=== PATIENT | female | born 1970 | race Caucasian/White ===

== ENCOUNTER 2021-01-05 19:49 | Inpatient (IN) | payer MEDICARE, MEDICAID, SELFPAY ==
--- NOTE | 2021-01-05 19:20 | ECG_ITS ---
APPROVED REPORT Exam: Resting ECG HR:77 bpm ECG Measurements Heart Rate 77 AXES IN 136 P 71 QRSd 70 QRS 51 QT 368 T 59 QTc 416 Conclusion Normal sinus rhythm Normal ECG Electronically signed by : Jc Marshall, 01/06/2021 18:05:13
[2021-01-05 19:48] VITALS: BP 117/77; PULSE 68; RESP 17; TEMP 37.8; O2SAT 98; BMI 22.1
--- NOTE | 2021-01-05 19:58 | CT_ITS ---
PROCEDURE: CT CERVICAL SPINE WO CON CLINICAL INDICATION: fall Pain COMPARISON: CT CT CERVICAL SPINE WO CON from 09/26/2019 TECHNIQUE: Axial images obtained with sagittal and coronal reformats. All CT scans at the facility use one or more dose reduction, viz: automated exposure control, ma/kV adjustment per patient size (including targeted exams where dose is matched to indication, i.e. head), or iterative reconstruction technique. Axial spiral CT scanning performed of the cervical spine beginning at the base of the skull and continuing to the upper T-spine. 3-D multiplanar reconstruction with 3-D manipulation of volumetric data set in image rendering was completed by the radiologist and/or technologist with the supervision of the radiologist on independent workstation. FINDINGS: Normal alignment. No acute fracture or dislocation. C2-C3: Unremarkable. C3-C4: Mild foraminal narrowing from facet hypertrophic change. C4-C5: Mild bilateral foraminal narrowing from facet hypertrophic change. C5-C6: Degenerative disc disease with mild bilateral facet and uncovertebral hypertrophy with foraminal narrowing. Prominent anterior osteophyte. Canal stenosis is present at this level at 8 mm secondary to endplate osteophytes/broad-based disc osteophyte complex.. Right paracentral vertebral body hypertrophic change at C6 is causing canal stenosis and right lateral recess narrowing. C7-T1: Right paracentral disc osteophyte complex with canal stenosis and right lateral recess narrowing. Lung apices are clear. Otto mm left-sided thyroid nodule. There are few scattered small cervical lymph nodes. C6-C7: IMPRESSION: 1. No acute fracture. 2. Multilevel cervical spondylosis as described above. 3. 11 mm thyroid nodule on the left Dictated by: Bucky Greene MD 01/06/2021 07:22 Bucky Greene MD in [facility] 01/06/2021 07:22
--- NOTE | 2021-01-05 19:58 | XR_ITS ---
PROCEDURE: XR CHEST PORTABLE CLINICAL HISTORY: fall Pain COMPARISON: CR CXR2 XR chest AP from 06/20/2018 CR XR CHEST AP from 09/26/2019 FINDINGS: The cardiomediastinal silhouette and pulmonary vascularity are within normal limits. The lungs are clear without infiltrates, suspicious nodules, or pleural effusions. No acute bony abnormalities. IMPRESSION: No acute findings. Dictated by: Bucky Greene MD 01/06/2021 06:16 Bucky Greene MD in [facility] 01/06/2021 06:16
--- NOTE | 2021-01-05 19:58 | CT_ITS ---
PROCEDURE: CT HEAD/BRAIN WO CON CLINICAL INDICATION: fall Pain COMPARISON: CT CT HEAD/BRAIN WO CON from 09/26/2019 TECHNIQUE: Axial images obtained. All CT scans at the facility use one or more dose reduction, viz: automated exposure control, ma/kV adjustment per patient size (including targeted exams where dose is matched to indication, i.e. head), or iterative reconstruction technique. FINDINGS: No midline shift, mass effect, intracranial hemorrhage, hydrocephalus, or extra-axial fluid collection is evident. There is generalized atrophy with hypoattenuation of the periventricular white matter consistent with microangiopathic changes.. There are numerous subcutaneous nodules along the scalp partially calcified. Please correlate with physical exam. The largest is in the right frontal area at 11 mm. The calvarium has an unremarkable appearance. No mastoid effusion. No sinus air-fluid level. IMPRESSION: 1. No acute intracranial findings. 2. Numerous partially calcified scalp nodules etiology indeterminate. Please correlate with physical exam. Dictated by: Bucky Greene MD 01/06/2021 07:17 Bucky Greene MD in [facility] 01/06/2021 07:17
--- NOTE | 2021-01-05 19:58 | XR_ITS ---
PROCEDURE: XR PELVIS 1-2V CLINICAL INDICATION: fall COMPARISON: CR PEL1V XR pelvis 1-2V from 06/20/2018 CR XR PELVIS 1-2V from 09/26/2019 TECHNIQUE: XR Pelvis AP View FINDINGS: No fracture or dislocation is evident. 14 mm sclerotic focus is present involving the proximal left femur which is stable and may be due to a bone island. Linear metallic density noted over the L4 region etiology indeterminate possibly due to body piercing artifact or foreign body IMPRESSION: No acute findings. Dictated by: Bucky Greene MD 01/06/2021 06:13 Bucky Greene MD in [facility] 01/06/2021 06:13
[2021-01-05 20:19] LABS: Basophils # 0.1 K/mm3 (0-0.2); Basophils % 0.3 % (0.1-2.0); Eosinophils % 0.1 % (0.1-12.0); Hematocrit 45.2 % (37.0-47.0); Hemoglobin 15.5 g/dL (12.2-16.2); Lymphocytes # 1.1 K/mm3 (0.7-4.5); Lymphocytes % 5.6 % (10-50); Mean Corpuscular HGB Conc 34.4 g/dL (31.8-35.4); Mean Corpuscular Hemoglobin 31.6 pg (27.0-31.2); Mean Corpuscular Volume 91.9 fl (81-99); Mean Platelet Volume 9.3 fl (7.4-10.4); Monocytes # 0.6 K/mm3 (0.1-1.0); Monocytes % 3.1 % (1.7-9.3); Neutrophils # 17.6 K/mm3 (1.8-7.8); Neutrophils % 90.8 % (37.0-80.0); Platelet Count 225 K/mm3 (142-424); Red Blood Count 4.92 M/mm3 (4.20-5.40); Red Cell Distribution Width 13.2 % (11.5-17.5); White Blood Count 19.3 K/mm3 (4.8-10.8)
[2021-01-05 20:26] LABS: HCG Qualitative, Serum Negative (Negative)
[2021-01-05 20:27] LABS: Alanine Aminotransferase 22 U/L (12-78); Albumin Level 5.4 g/dl (3.5-5.0); Alkaline Phosphatase 92 U/L (38-126); Anion Gap 18.9 mEq/L (5-15); Aspartate Amino Transferase 66 U/L (14-36); Bilirubin,Direct 0.2 mg/dl (0.0-0.4); Bilirubin,Indirect 0.7 mg/dL (0.0-0.9); Bilirubin,Total 0.9 mg/dl (0.2-1.3); Bilirubin,Unconjugated 0.7 mg/dL (0.0-1.1); Blood Urea Nitrogen 42 mg/dl (7-17); Calcium 10.6 mg/dl (8.4-10.2); Carbon Dioxide 25 mmol/L (22.0-30.0); Chloride 114 mmol/L (98-107); Creatine Kinase 1102 U/L (30-135); Creatinine Clearance Estimated 56 mL/min (50-200); Estimated Glomerular Filt Rate 53 ml/min (>60); GFR (African American) 64 ML/MIN (>60); Glucose 132 mg/dl (74-100); MANUAL DIFFERENTIAL MANUAL DIFFERENTIAL (MANUAL DIFF); Potassium 3.9 mmoL/L (3.5-5.1); Total Protein,Serum 9.2 g/dl (6.3-8.2)
[2021-01-05 20:29] LABS: Acetaminophen < 10 ug/ml (10-30); Salicylate < 1.0 mg/dL (2.0-20.0)
--- NOTE | 2021-01-05 20:29 | PC.NURSE ---
Dr. Ortiz notified of critical sodium
[2021-01-05 20:31] LABS: Sodium 154 mmol/L (136-145)
[2021-01-05 20:32] LABS: C-Reactive Protein 3.6 mg/L (0-4)
[2021-01-05 20:43] LABS: Troponin I < 0.01 ng/ml (0.00-0.034)
[2021-01-05 20:47] LABS: Procalcitonin 0.069 ng/mL (0.0-2.0)
[2021-01-05 21:03] LABS: Erythrocyte Sedimentation Rate 17 mm/hr (0-20)
[2021-01-05 21:07] VITALS: BP 124/77; PULSE 61; RESP 15; O2SAT 96
[2021-01-05 21:13] LABS: Adenovirus,PCR Not Detected (NotDetected); Bordetella Pertussis Not Detected (NotDetected); Chlamydophila Pneumoniae, PCR Not Detected (NotDetected); Coronavirus 19, PCR Not Detected (NotDetected); Coronavirus 229E Not Detected (NotDetected); Coronavirus NL63 Not Detected (NotDetected); Coronavirus OC43 Not Detected (NotDetected); Coronovirus HKU1,PCR Not Detected (NotDetected); Human Metapneumovirus Not Detected (NotDetected); Influenza A, PCR Not Detected (NotDetected); Influenza AH1, 2009 Not Detected (NotDetected); Influenza AH1, PCR Not Detected (NotDetected); Influenza AH3,PCR Not Detected (NotDetected); Influenza B, PCR Not Detected (NotDetected); Mycoplasma Pneumoniae, PCR Not Detected (NotDetected); Parainfluenza 1, PCR Not Detected (NotDetected); Parainfluenza 2, PCR Not Detected (NotDetected); Parainfluenza 3, PCR Not Detected (NotDetected); Parainfluenza 4, PCR Not Detected (NotDetected); Respiratory Syncytial Virus Not Detected (NotDetected); Rhinovirus/Enterovirus Not Detected (NotDetected)
[2021-01-05 21:21] LABS: Lymphocytes % 8 % (10-50); Monocytes % 4 % (2-9); Neutrophils % 88 % (42-76); Platelet Estimate Normal; RBC Morphology Normal; Total Cells Counted 100
[2021-01-05 21:30] VITALS: BP 113/71; PULSE 60; RESP 16; O2SAT 100
--- NOTE | 2021-01-05 21:30 | HMH.EDFALL ---
ED Disposition Clinical Impression: PAULINA (acute kidney injury), Hypernatremia, Vivien disease Rhabdomyolysis Qualifiers: Rhabdomyolysis type: non-traumatic Qualified Code(s): M62.82 - Rhabdomyolysis UTI (urinary tract infection) Qualifiers: Urinary tract infection type: site unspecified Hematuria presence: without hematuria Qualified Code(s): N39.0 - Urinary tract infection, site not specified Disposition: Admitted As Inpatient Condition on Discharge: Serious Referrals: Provider,Referral, [Referring] - - Critical Care Critical Care Time: No Attestation: On 01/05/21, the high probability of a clinically significant, sudden or life threatening deterioration of the following system(s) required my full and direct attention, intervention and personal management. The time I documented below is in addition to time spent performing reported procedures but includes the following listed in this critical care notation. Medical Decision Making - Medical Records Medical records reviewed: Yes: I reviewed the patient's medical records. - [place] Inquiry Pt receiving controlled substance: No Vital Signs: 01/05/21 19:48 Temperature 100.1 F H Temperature Source Rectal Pulse Rate [Right] 68 Respiratory Rate 17 Blood Pressure [Right Arm] 117/77 Blood Pressure Mean [Right Arm] 90 Blood Pressure Source [Right Arm] Automatic Cuff 02 Sat by Pulse Oximetry 98 Oxygen Delivery Method Room Air - Lab Data Lab results reviewed: Yes: I reviewed the patient's lab results. Lab Results 01/05/21 19:54: WBC 19.3 H, RBC 4.92, Hgb 15.5, Hct 45.2, MCV 91.9, MCH 31.6 H, MCHC 34.4, RDW 13.2, Plt Count 225, MPV 9.3, Neut % (Auto) 90.8 H, Lymph % (Auto) 5.6 L, [place] % (Auto) 3.1, Eos % (Auto) 0.1, Baso % (Auto) 0.3, Neut # (Auto) 17.6 H, Lymph # (Auto) 1.1, [place] # (Auto) 0.6, Eos # (Auto) 0.0, Baso # (Auto) 0.1, Total Counted 100, Neutrophils % (Manual) 88 H, Lymphocytes % (Manual) 8 L, Monocytes % (Manual) 4, Platelet Estimate Normal, RBC Morphology Normal, ESR 17 01/05/21 19:54: Sodium 154 H*, Potassium 3.9, Chloride 114 H, Carbon Dioxide 25, Anion Gap 18.9 H, BUN 42 H, Creatinine 1.10 H, Estimated Creat Clear 56, Estimated GFR 53 L, Est GFR ( Amer) 64, Glucose 132 H, Calcium 10.6 H, Total Bilirubin 0.9, Direct Bilirubin 0.2, Conjugated Bilirubin 0.0, Indirect Bilirubin 0.7, Unconjugated Bilirubin 0.7, AST 66 H, ALT 22, Alkaline Phosphatase 92, Total Creatine Kinase 1102 H*, Troponin I < 0.01, C-Reactive Protein 3.6, Total Protein 9.2 H, Albumin 5.4 H, Procalcitonin 0.069, Salicylates < 1.0 L, Acetaminophen < 10 L 01/05/21 19:54: Lactate 1.0 01/05/21 19:54: Serum HCG, Qual Negative 01/05/21 21:45: Urine Color Yellow, Urine Appearance Cloudy, Urine pH 6.0, Ur Specific [place] >= 1.030, Urine Protein 1+, Urine Glucose (UA) Negative, Urine Ketones Trace, Urine Blood 3+, Urine Nitrate Negative, Urine Bilirubin Negative, Urine Urobilinogen 0.2, Ur Leukocyte Esterase 1+ A Result diagrams: 01/05/21 19:54 01/05/21 19:54 Orders (Tests/Meds): ED MEDICATIONS Generic Name Dose Route Start Last Admin Trade Name Freq PRN Reason Stop Dose Admin Sodium Chloride 1,000 mls @ 999 mls/hr 01/05/21 20:15 01/05/21 20:15 Sod Chlor 0.9% 1000ml Bag IV 01/05/21 21:15 999 mls/hr .Q1H1M HEBERT Administration Lactated Ringer's 1,000 mls @ 999 mls/hr 01/05/21 21:00 01/05/21 20:03 Lactated Ringer's 1000 Ml Bag IV 01/05/21 22:00 999 mls/hr .Q1H1M HEBERT Administration Lactated Ringer's 1,000 mls @ 999 mls/hr 01/05/21 21:00 01/05/21 21:00 Lactated Ringer's 1000 Ml Bag IV 01/05/21 22:00 999 mls/hr .Q1H1M HEBERT Administration ORDERS Category Date Time Status CT cervical spine wo con Stat Cat Scan 01/05/21 19:[address] head/brain wo con Stat Cat Scan 01/05/21 19:58 Taken XR chest portable Stat Exams 01/05/21 19:58 Taken XR pelvis 1-2V Stat Exams 01/05/21 19:58 Taken Drug Screen,Urine Stat Lab 01/05/21 21:45 Received
[2021-01-05 21:51] LABS: Microscopic, Urine URINE MICROSCOPIC (MICROSCOPIC)
[2021-01-05 21:52] LABS: Appearance,Urine CLOUDY (Clear); Blood, Urine 3+ (Negative); Color,Urine YELLOW (Yellow); Glucose,Urine (UA) Negative (Negative); Ketones,Urine TRACE (Negative); Leukocyte Esterase,Urine 1+ (Negative); Nitrate,Urine Negative (Negative); Protein,Urine 1+ (Negative); Specific Gravity, Urine >= 1.030 (1.005-1.030); Urobilinogen,Urine 0.2 EU/dl (0.2)
[2021-01-05 21:56] LABS: Bilirubin,Urine Negative (Negative)
[2021-01-05 22:02] LABS: Bacteria,Urine 4+ /lpf; RBC,Urine Occasional #/hpf (0-3); Trichomonas,Urine Occasional /lpf
[2021-01-05 22:03] LABS: Amphetamine/Metha Screen,Urine Negative ng/ml (<1000); Benzodiazepines Screen,Urine Negative ng/ml (<200)
[2021-01-05 22:04] LABS: Barbiturates Screen,Urine Negative ng/ml (<200)
--- NOTE | 2021-01-05 22:04 | PC.NURSE ---
Dr. Ortiz s/w Dr. Garcia
[2021-01-05 22:05] LABS: Cannabinoid Screen,Urine Negative ng/ml (<50); Cocaine Screen,Urine Negative ng/ml (<300)
--- NOTE | 2021-01-05 22:05 | PC.NURSE ---
notified housekeeping staff for admission
[2021-01-05 22:06] LABS: Methadone Screen,Urine Negative ng/ml (<300); Opiate Screen,Urine Negative ng/ml (<300)
[2021-01-05 22:07] LABS: Phencyclidine Screen,Urine Negative ng/ml (<25)
[2021-01-05 22:21] VITALS: PULSE 68; RESP 18; TEMP 36.9; O2SAT 100
--- NOTE | 2021-01-05 22:29 | PC.NURSE ---
Called to check on status of covid test, lab notified it would be [id number].
[2021-01-05 23:52] VITALS: BP 106/72; PULSE 73; RESP 16; TEMP 36.7; O2SAT 98
[2021-01-06 00:03] VITALS: BP 108/64; PULSE 61; RESP 20; TEMP 36.8; O2SAT 99
--- NOTE | 2021-01-06 00:03 | PC.NURSE ---
PT ARRIVED TO [facility] VIA STRETCHER FROM ED W/STAFF AT 0003
--- NOTE | 2021-01-06 02:01 | PC.WOUNDNOTE ---
scattered bruising to bilateral legs
--- NOTE | 2021-01-06 02:01 | PC.WOUNDNOTE ---
bruise to left side of face with some swelling noted
--- NOTE | 2021-01-06 02:02 | PC.WOUNDNOTE ---
3 areas to coccyx, redness and bruising noted to right lower back
--- NOTE | 2021-01-06 03:43 | PC.NURSE ---
pt admitted for uti, and rhabdo. peraza in place draining cloudy narayan urine. iv patent and infusing per order. no pain reported. pt extermities are rigid and spasms at times. pressure area to coccyx has dressing in place. q2h turn. vss. pt was unable to identify home medications so med was not completed. some home meds are in draw. call light in reach. er set password up prior to arrival to floor. password is . pressure pad was placed on bed and weight was not obtained related to inability to stand at this time and non weigh bed. will continue to monitor
[2021-01-06 04:00] VITALS: BP 90/53; PULSE 63; RESP 16; TEMP 36.6; O2SAT 98
--- NOTE | 2021-01-06 05:25 | PC.NURSE ---
unable to obtain weight . pt in non-weigh bed
[2021-01-06 06:33] LABS: Basophils # 0.1 K/mm3 (0-0.2); Basophils % 0.5 % (0.1-2.0); Eosinophils # 0.1 K/mm3 (0.0-0.4); Eosinophils % 0.6 % (0.1-12.0); Hematocrit 35.6 % (37.0-47.0); Lymphocytes # 1.8 K/mm3 (0.7-4.5); Lymphocytes % 12.2 % (10-50); Mean Corpuscular HGB Conc 34.1 g/dL (31.8-35.4); Mean Corpuscular Volume 93.9 fl (81-99); Mean Platelet Volume 8.8 fl (7.4-10.4); Monocytes # 0.6 K/mm3 (0.1-1.0); Monocytes % 3.8 % (1.7-9.3); Neutrophils # 12.2 K/mm3 (1.8-7.8); Platelet Count 139 K/mm3 (142-424); Red Cell Distribution Width 13.2 % (11.5-17.5); White Blood Count 14.7 K/mm3 (4.8-10.8)
[2021-01-06 06:38] LABS: Chloride 117 mmol/L (98-107); Potassium 3.5 mmoL/L (3.5-5.1)
[2021-01-06 06:40] LABS: Blood Urea Nitrogen 30 mg/dl (7-17); Creatinine Clearance Estimated 88 mL/min (50-200); Estimated Glomerular Filt Rate 89 ml/min (>60); GFR (African American) 108 ML/MIN (>60)
[2021-01-06 06:41] LABS: Anion Gap 9.5 mEq/L (5-15); Carbon Dioxide 28 mmol/L (22.0-30.0); Creatine Kinase 1578 U/L (30-135); Glucose 102 mg/dl (74-100); Magnesium 2.1 mg/dl (1.6-2.3)
[2021-01-06 07:18] LABS: Sodium 151 mmol/L (136-145)
[2021-01-06 07:21] LABS: Calcium 8.9 mg/dl (8.4-10.2)
[2021-01-06 07:28] LABS: Hemoglobin 12.1 g/dL (12.2-16.2)
[2021-01-06 08:00] VITALS: BP 103/62; PULSE 81; RESP 18; TEMP 36.6; O2SAT 99
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
--- NOTE | 2021-01-06 08:58 | P.CONPHA_ITS ---
[facility] Pharmacy VTE Monitoring - Patient Demographics Admission date: 01/06/21 Report Date: 01/06/21 Time: 08:58 Allergies/Adverse Reactions: Patient Allergies NO KNOWN ALLERGIES Allergy (Uncoded 08/31/17 15:34) Height: 1.6 m Weight: 56.6 kg Patient Problems: Current Active Problems Fall (Acute) Vivien disease (Acute) Rhabdomyolysis (Acute) UTI (urinary tract infection) (Acute) PAULINA (acute kidney injury) (Acute) Hypernatremia (Acute) - VTE Risk Labs: VTE Related Lab Results Hgb 12.1 g/dL (12.2-16.2) L D 01/06/21 06:00 Hct 35.6 % (37.0-47.0) L 01/06/21 06:00 Plt Count 139 K/mm3 (142-424) L D 01/06/21 06:00 BUN 30 mg/dl (7-17) H D 01/06/21 06:00 Creatinine 0.70 mg/dl (0.52-1.04) D 01/06/21 06:00 Estimated Creat Clear 88 mL/min (50-200) 01/06/21 06:00 Was VTE Risk Assessment Performed: Yes VTE Score: 1 VTE Risk Level: Very Low Risk - Prophylaxis VTE Prophylaxis Ordered?: Yes Types of VTE Prophylaxis: TEDS Knee High Location of Applied Device: Bilateral Lower Extremeties
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
[2021-01-06 11:08] VITALS: BMI 22.1
--- NOTE | 2021-01-06 13:29 | HMH.PTEV ---
Physical Therapy Evaluation Rehab PT IP Evaluation Start: 01/06/21 11:31 Freq: ONCE Status: Active Protocol: Document 01/06/21 13:25 PHORNE (Rec: 01/06/21 13:29 PHORNE [id number]) Subjective/History History History 50 yowf adm to [facility] with UTI and rhabdo after found down at home. She lives alone and uses walker for ambulation per her reports. PMH: Vivien' s disease. Subjective Subjective Pt with no c/o this pm. Rehab PT IP Eval Objective Appearance Patient Behavior Appropriate,Impulsive Patient Orientation Person,Place,Time Difficulty following instructions none Speech Pattern Poor Articulation,Patient Baseline Ambulation Patient Able to Ambulate Yes Ambulation Observation IP General Gait Pattern Observation Wide Based Gait,Ataxic Gait Ambulation Distance (feet) 3 Ambulation Assistive Device None Ambulation Ability Minimal x 2 (25% assist) Balance Ability to Arise Able, uses arms to help Sitting Balance Leans or slides in chair Standing Balance Unsteady Dynamic Sitting Balance Ability Fair Dynamic Standing Balance Ability Poor Transfers Bed Transfer Ability Minimal x 1 (25% assist) Chair Transfer Ability Minimal x 2 (25% assist) Sit to Stand Bed Transfer Ability Minimal x 2 (25% assist) Sit to Stand Chair Transfer Ability Minimal x 2 (25% assist) Rehab PT IP prob,goals,plan Problems Date of Evaluation: 01/06/21 PT IP Problems Bed Mobility,Transfers,Gait, Balance,Safety Rehab Potential Rehab Potential Good Plan PT Intervention Plan Bed Mobility,Transfers,Gait, Balance,Self care,Safety, Therapeutic Exercise PT Plan Frequency BID Duration LOS Discharge Goals Bed Transfer Ability Contact Guard/Hand Hold Sit to Stand Chair Transfer Ability Contact Guard/Hand Hold Ambulation Assistive Device Rolling Walker Ambulation Distance (feet) 30 Discharge Plan PT Discharge Plan Pt is currently most appropriate for rehab placement. G -code Required No Eval Complexity Eval Charge Codes 30507 - Moderate Complexity PHYSICIAN CERTIFICATION: I certify the specified therapy services for Bernadette Carrington are required, authorized, and reviewed every 30 days.
--- NOTE | 2021-01-06 13:39 | HMH.OTEV ---
OT Inpatient Evaluation Rehab OT IP Evaluation Start: 01/06/21 11:32 Freq: ONCE Status: Complete Protocol: [facility] 01[facility]06/21 13:[facility] (Rec: 01/06/21 13:39 [facility] [id number]) Rehab OT IP Assessment Subjective History Pt oriented x 3 on arrival. Pt agreeable to engage in therapy session. Pt admitted via ED on 01/06/21 due to a fall at home. Pt lived at [facility] alone prior to admission. Pt was found by EMS at home on the floor covered in feces and urine. Pt has a past medical history of Hyperlipidemia, HTN, Depression, and [place]tons disease. Pt reports normally she is able to completed all ADLs and IADLs indpendently. She uses a walker during ambulation. Subjective Turn on my TV. Objective Patient Orientation Person,Place,Birthday Upper Extremity Gross ROM Min Limitation <25% Shoulder ROM Limitations Soft Tissue Tightness Elbow ROM Limitations Soft Tissue Tightness Bed Mobility bed mobility-scooting,bed mobility - supine/sit,bed mobility - rolling Assist Level Minimal x 1 (25% assist) Transfer Training Sit/Stand Transfer Assist Level Minimal x 1 (25% assist) Chair Transfer Ability Minimal x 1 (25% assist) Chair Transfer Technique Sit to/from Ambulatory Rehab OT IP prob,goals,plan Problems Date of Evaluation: 01/06/21 OT IP Problems Bed Mobility,Transfers,Gait, Balance,Self care,Safety Rehab Potential Rehab Potential Fair Equipment Needs Assistive Devices Rolling / Wheeled Walker Plan OT intervention Plan Bed Mobility,Transfers,Gait, Balance,Self care,Safety, Therapeutic Exercise OT Plan Frequency BID Duration LOS Discharge Goals Bed Mobility Ability Standby Assistance,Assistance x1 Sit to Stand Chair Transfer Ability Contact Guard/Hand Hold Chair Transfer Ability Supervision/Stand by,Contact Guard/Hand Hold Chair Transfer Technique Sit to/from Ambulatory Chair Transfer Assistive Devices Rolling Walker Self care skills
--- NOTE | 2021-01-06 14:11 | HMH.PHAINT ---
HOME MEDICATIONS RECONCILED FROM [facility] OFFICE LIST AND EXTERNAL FILL HISTORY.
--- NOTE | 2021-01-06 15:44 | PC.NURSE ---
Pt is mostly alert and oriented. She is able to verbalize needs, although speech is delayed. She was up to the chair with assist x1 from PT. She is very unsteady on her feet. She has bruising to left side of her face. Bruising to her right leg/knee. She has a dressing to her coccyx that is clean, dry and intact. Bilateral eyes have crusting to them. Gould is draining to gravity at the bedside. Safety measures in place, call light within reach. Will continue to monitor.
[2021-01-06 16:00] VITALS: BP 106/69; PULSE 64; RESP 16; TEMP 36.7; O2SAT 99
[2021-01-06 20:00] VITALS: BP 102/53; PULSE 74; RESP 20; TEMP 36.4; O2SAT 100
[2021-01-07 04:00] VITALS: BP 106/65; PULSE 60; RESP 20; TEMP 36.8; O2SAT 98
--- NOTE | 2021-01-07 05:20 | PC.NURSE ---
Pt can not stand and bed does not have bedscale
[2021-01-07 07:03] LABS: Basophils % 0.5 % (0.1-2.0); Eosinophils # 0.2 K/mm3 (0.0-0.4); Eosinophils % 1.7 % (0.1-12.0); Hematocrit 36.2 % (37.0-47.0); Hemoglobin 12.6 g/dL (12.2-16.2); Lymphocytes # 1.4 K/mm3 (0.7-4.5); Lymphocytes % 14.6 % (10-50); Mean Corpuscular HGB Conc 34.7 g/dL (31.8-35.4); Mean Corpuscular Hemoglobin 31.6 pg (27.0-31.2); Mean Corpuscular Volume 90.9 fl (81-99); Mean Platelet Volume 9.2 fl (7.4-10.4); Monocytes # 0.3 K/mm3 (0.1-1.0); Monocytes % 2.9 % (1.7-9.3); Neutrophils # 7.5 K/mm3 (1.8-7.8); Neutrophils % 80.3 % (37.0-80.0); Platelet Count 103 K/mm3 (142-424); Red Blood Count 3.98 M/mm3 (4.20-5.40); Red Cell Distribution Width 13.1 % (11.5-17.5); White Blood Count 9.4 K/mm3 (4.8-10.8)
[2021-01-07 07:14] LABS: Chloride 107 mmol/L (98-107)
[2021-01-07 07:15] LABS: Potassium 3.5 mmoL/L (3.5-5.1); Sodium 140 mmol/L (136-145)
[2021-01-07 07:18] LABS: Anion Gap 12.5 mEq/L (5-15); Blood Urea Nitrogen 13 mg/dl (7-17); Calcium 8.6 mg/dl (8.4-10.2); Carbon Dioxide 24 mmol/L (22.0-30.0); Creatinine Clearance Estimated 123 mL/min (50-200); Estimated Glomerular Filt Rate 132 ml/min (>60); GFR (African American) 159 ML/MIN (>60); Glucose 90 mg/dl (74-100)
[2021-01-07 07:38] VITALS: BP 107/68; PULSE 76; RESP 18; TEMP 36.7; O2SAT 99
--- NOTE | 2021-01-07 08:13 | HMH.ACPN2 ---
<Eufemia Arechiga - Last Filed: 01/07/21 08:24> Internal Medicine - PN: Subj *Date: 01/07/21 *Time: 08:24 Interval history: Patient states she is doing okay. Her left arm hurts from blood draw. She has been fed her breakfast. See notes from PT and OT. She does not remember or did not know who they were. She states she is voiding without difficulty. Laboratory data this morning reveal white blood cell count of 9400 with a hemoglobin of 12.6 and hematocrit of 36.2. Blood chemistries show normal electrolytes with a BUN of 13 and creatinine of 0.5. To note urine did show trichomonas and patient was started on Flagyl. Urine and blood cultures are negative thus far. Exam Vital signs and Labs for Last 24 Hours: Temp Pulse Resp BP Pulse Ox 98.0 F 76 18 107/68 L 99 01/07/21 07:38 01/07/21 07:38 01/07/21 07:38 01/07/21 07:38 01/07/21 07:38 Laboratory Results - last 24 hr 01/07/21 06:51: WBC 9.4 D, RBC 3.98 L, Hgb 12.6, Hct 36.2 L, MCV 90.9, MCH 31.6 H, MCHC 34.7, RDW 13.1, Plt Count 103 L D, MPV 9.2, Neut % (Auto) 80.3 H, Lymph % (Auto) 14.6, [place] % (Auto) 2.9, Eos % (Auto) 1.7, Baso % (Auto) 0.5, Neut # (Auto) 7.5, Lymph # (Auto) 1.4, [place] # (Auto) 0.3, Eos # (Auto) 0.2, Baso # (Auto) 0.0 01/07/21 06:51: Sodium 140, Potassium 3.5, Chloride 107, Carbon Dioxide 24, Anion Gap 12.5, BUN 13 D, Creatinine 0.50 L D, Estimated Creat Clear 123, Estimated GFR 132, Est GFR ( Amer) 159 D, Glucose 90, Calcium 8.6 I & O for Last 24 hours: Intake & Output 01/04/21 01/05/21 01/06/21 01/07/21 11:59 11:59 11:59 11:59 Intake Total 3597 / 3597 3946 / 3946 Output Total 535 / 535 900 / 900 Balance 3062 / 3062 3046 / 3046 Weight 124 lb 12.506 oz Microbiology Reports for the Last 24 Hours: Microbiology 01/05/21 21:45 Urine,Catheterized Urine Culture - Preliminary NO GROWTH AFTER 24 HOURS - Constitutional no acute distress Comments: Sitting up in the bed and is being fed her breakfast. She states she is hungry. Noted to have no difficulty with eating/swallowing. - *Routine HEENT Exam Head: Present: other (Sclera appear less injected today) - *Routine Respiratory Exam Present: CTA bilaterally - *Routine Cardiovascular Exam Present: RRR - *Routine Abdominal Exam Present: soft, normoactive bowel sounds. 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 (2) Hypernatremia Status: Acute Category: Medical Code(s): E87.0 - Hyperosmolality and hypernatremia (3) Rhabdomyolysis Status: Acute Qualifiers: Rhabdomyolysis type: non-traumatic Qualified Code(s): M62.82 - Rhabdomyolysis Category: Medical Code(s): M62.82 - Rhabdomyolysis (4) UTI (urinary tract infection) Status: Acute Qualifiers: Urinary tract infection type: site unspecified Hematuria presence: without hematuria Qualified Code(s): N39.0 - Urinary tract infection, site not specified Category: Medical Code(s): N39.0 - Urinary tract infection, site not specified (5) Fall Status: Acute Qualifiers: Encounter type: initial encounter Qualified Code(s): W19.XXXA - Unspecified fall, initial encounter Category: Medical Code(s): W19.XXXA - Unspecified fall, initial encounter (6) Conjunctivitis Status: Acute Category: Medical Code(s): H10.9 - Unspecified conjunctivitis (7) Trichomonas infection Status: Acute Category: Medical Code(s): A59.9 - Trichomoniasis, unspecified - Assessment and plan all Dx Assessment and Plan for all problems:: Continue current care. Care management working on placement. See notes. <Liam Garcia - Last Filed: 01/07/21 17:13> Internal Medi
[2021-01-07 15:17] VITALS: BP 114/65; PULSE 84; RESP 17; TEMP 36.8; O2SAT 97
--- NOTE | 2021-01-07 15:22 | PC.NURSE ---
PT IS RESTING IN BED. ALERT AND ORIENTED X4. PT HAS BEEN ABLE TO COMMUNICATE T/O THE SHIFT BUT SPEECH IS DELAYED AND DIFFICULT TO UNDERSTAND. PT AMBULATED FAIR WITH WALKER AND PHYSICAL THERAPY. VERY UNSTEADY GAIT/SHUFFLE WHILE AMBULATING. PT STATES SHE GETS AROUND WITH A WALKER AT HOME. EATING AND DRINKING WELL BUT PT DOES REQUIRE SOME ASSISTANCE WITH EATING. PT IS ABLE TO FEED HERSELF FINGER FOODS. UNSTAGEABLE ULCER NOTED TO THE COCCYX. TURNED AND REPOSITIONED FREQUENTLY. BATH AND LINEN CHANGE THIS SHIFT. 2 ASSIST TO GET UP TO THE BSC. VSS. PT TAKES ALL OF HER PO MEDICATIONS W/O DIFFICULTY. WILL CONTINUE TO MONITOR.
[2021-01-07 20:00] VITALS: BP 98/57; PULSE 85; RESP 17; TEMP 36.6; O2SAT 100
--- NOTE | 2021-01-08 03:50 | PC.NURSE ---
Pt A&O x4 and has rested well this shift. Pt is able to make needs known to staff, speech is delayed and slurred. BUE are spastic and shaky. Pt had several episodes of incontinence this shift. Brief in place. Unstagable DTI on coccyx, deborahg applied CDI. Pt is a two assist when getting OOB. IV patent, LR @ 125. VSS, call light in reach, no concerns at this time.
[2021-01-08 04:00] VITALS: BP 99/64; PULSE 69; RESP 16; TEMP 36.8; O2SAT 98
--- NOTE | 2021-01-08 06:38 | PC.NURSE ---
0600 UNABLE TO OBTAIN WEIGHT. PATIENT IN A NON WEIGH BED
[2021-01-08 07:45] LABS: Basophils % 0.5 % (0.1-2.0); Eosinophils # 0.1 K/mm3 (0.0-0.4); Eosinophils % 1.5 % (0.1-12.0); Hematocrit 36.1 % (37.0-47.0); Hemoglobin 12.5 g/dL (12.2-16.2); Lymphocytes # 1.6 K/mm3 (0.7-4.5); Lymphocytes % 18.8 % (10-50); Mean Corpuscular HGB Conc 34.7 g/dL (31.8-35.4); Mean Corpuscular Hemoglobin 31.8 pg (27.0-31.2); Mean Corpuscular Volume 91.5 fl (81-99); Mean Platelet Volume 9.3 fl (7.4-10.4); Monocytes # 0.3 K/mm3 (0.1-1.0); Monocytes % 3.6 % (1.7-9.3); Neutrophils # 6.3 K/mm3 (1.8-7.8); Neutrophils % 75.6 % (37.0-80.0); Platelet Count 128 K/mm3 (142-424); Red Blood Count 3.94 M/mm3 (4.20-5.40); White Blood Count 8.3 K/mm3 (4.8-10.8)
[2021-01-08 07:50] LABS: Chloride 105 mmol/L (98-107); Sodium 140 mmol/L (136-145)
[2021-01-08 07:53] LABS: Anion Gap 7.8 mEq/L (5-15); Blood Urea Nitrogen 7 mg/dl (7-17); Carbon Dioxide 30 mmol/L (22.0-30.0); Creatine Kinase 827 U/L (30-135); Creatinine Clearance Estimated 102 mL/min (50-200); Estimated Glomerular Filt Rate 107 ml/min (>60); GFR (African American) 129 ML/MIN (>60)
[2021-01-08 07:54] LABS: Calcium 8.5 mg/dl (8.4-10.2); Glucose 87 mg/dl (74-100)
[2021-01-08 07:59] LABS: Potassium 2.8 mmoL/L (3.5-5.1)
[2021-01-08 08:00] VITALS: BP 105/65; PULSE 83; RESP 17; TEMP 36.8; O2SAT 100
--- NOTE | 2021-01-08 08:06 | HMH.ACPN2 ---
<Jo Ann Sutherland - Last Filed: 01/08/21 08:06> Internal Medicine - PN: Subj *Date: 01/08/21 *Time: 08:06 Interval history: Patient says she is feeling better today. She denies any pain. She states she slept and ate breakfast. She is anxious to be discharged back to [place]. Exam Vital signs and Labs for Last 24 Hours: Temp Pulse Resp BP Pulse Ox 98.2 F 69 16 99/64 L 98 01/08/21 04:00 01/08/21 04:00 01/08/21 04:00 01/08/21 04:00 01/08/21 04:00 Laboratory Results - last 24 hr 01/08/21 07:14: Sodium 140, Potassium 2.8 L*, Chloride 105, Carbon Dioxide 30 D, Anion Gap 7.8, BUN 7 D, Creatinine 0.60, Estimated Creat Clear 102, Estimated GFR 107, Est GFR ( Amer) 129, Glucose 87, Calcium 8.5, Total Creatine Kinase 827 H* D I & O for Last 24 hours: Intake & Output 01/05/21 01/06/21 01/07/21 01/08/21 11:59 11:59 11:59 11:59 Intake Total 3597 / 3597 4066 / 4066 960 / 960 Output Total 535 / 535 900 / 900 0 / 0 Balance 3062 / 3062 3166 / 3166 960 / 960 Weight 124 lb 12.506 oz Microbiology Reports for the Last 24 Hours: Microbiology 01/05/21 19:54 Blood Blood Culture - Preliminary NO GROWTH AFTER 48 HOURS 01/05/21 19:54 Blood Blood Culture - Preliminary NO GROWTH AFTER 48 HOURS 01/05/21 21:45 Urine,Catheterized Urine Culture - Preliminary - Constitutional no acute distress - *Routine Respiratory Exam Present: CTA bilaterally - *Routine Cardiovascular Exam Present: RRR - *Routine Abdominal Exam Present: soft, normoactive bowel sounds. Absent: tenderness - *Routine Extremities Exam Absent: cyanosis, clubbing, edema - *Routine Skin Exam Present: warm. 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 (2) Hypernatremia Status: Acute Category: Medical Code(s): E87.0 - Hyperosmolality and hypernatremia (3) Rhabdomyolysis Status: Acute Qualifiers: Rhabdomyolysis type: non-traumatic Qualified Code(s): M62.82 - Rhabdomyolysis Category: Medical Code(s): M62.82 - Rhabdomyolysis (4) UTI (urinary tract infection) Status: Acute Qualifiers: Urinary tract infection type: site unspecified Hematuria presence: without hematuria Qualified Code(s): N39.0 - Urinary tract infection, site not specified Category: Medical Code(s): N39.0 - Urinary tract infection, site not specified (5) Fall Status: Acute Qualifiers: Encounter type: initial encounter Qualified Code(s): W19.XXXA - Unspecified fall, initial encounter Category: Medical Code(s): W19.XXXA - Unspecified fall, initial encounter (6) Conjunctivitis Status: Acute Category: Medical Code(s): H10.9 - Unspecified conjunctivitis (7) Trichomonas infection Status: Acute Category: Medical Code(s): A59.9 - Trichomoniasis, unspecified (8) Hypokalemia Status: Acute Category: Medical Code(s): E87.6 - Hypokalemia - Assessment and plan all Dx Assessment and Plan for all problems:: White blood cell count has returned to normal. Patient's potassium is low at 2.8. Will replace. CPK is decreasing. A bed is available at [place] and patient is medically stable. <Liam Garcia - Last Filed: 01/08/21 08:53> Internal Medicine - PN: Subj *Date: 01/08/21 *Time: 08:51 Exam Vital signs and Labs for Last 24 Hours: Temp Pulse Resp BP Pulse Ox 98.2 F 69 16 99/64 L 98 01/08/21 04:00 01/08/21 04:00 01/08/21 04:00 01/08/21 04:00 01/08/21 04:00 Laboratory Results - last 24 hr 01/08/21 07:03: WBC 8.3, RBC 3.94 L, Hgb 12.5, Hct 36.1 L, MCV 91.5, MCH 31.8 H, MCHC 34.7, RDW 13.0, Plt Count 128 L, MPV 9.3, Neut % (Auto) 75.6, Lymph % (Auto) 18.8, [place] % (Auto) 3.6, Eos % (Auto) 1.5, Baso % (Auto) 0.5, Neut # (Auto) 6.3, Lymph # (Auto) 1.6, M
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
--- NOTE | 2021-01-08 13:31 | PC.NURSE ---
report called to [facility]. ambulance transported pt to [facility]. pt will follow up at the long term.
[2021-01-08 17:55] LABS: CK-MB 4 % (0-3); CK-MM 93 % (97-100); Creatine Kinase,Total,Serum 1838 U/L (32-182); Macro Type 2 0 % (Not Observed)
[2021-01-09 08:45] LABS: CK-BB 2 % (0); Macro Type 1 2 % (Not Observed)
== END 2021-01-08 12:23 | DRG 690 ==
LOC: ER 21:44 → 2ND 22:13
PROVIDERS: Admitting Provider Family Medicine; Emergency Provider Emergency Medicine; PCP Family Medicine; Visit Provider Family Medicine
DX: N39.0 Urinary tract infection, site not specified (principal); E87.0 Hyperosmolality and hypernatremia; G10 Huntington's disease; M62.82 Rhabdomyolysis; N17.9 Acute kidney failure, unspecified; H10.9 Unspecified conjunctivitis; W19.XXXA Unspecified fall, initial encounter; F17.210 Nicotine dependence, cigarettes, uncomplicated; A59.9 Trichomoniasis, unspecified; H10.30 Unspecified acute conjunctivitis, unspecified eye; E78.5 Hyperlipidemia, unspecified; I10 Essential (primary) hypertension
CPT/HCPCS: 36415; 70450; 71045; 72125; 72170; 80048; 80076; 80305; 80329; 81001; 82550; 82552; 83605; 83735; 84145; 84484; 84703; 85007; 85025; 85651; 86140; 87040; 87086; 87088; 87186; 87581; 87633; 87798; 93005; 96365; 96366; 96375; 97110; 97116; 97162; 97166; 97530; 99284

== ENCOUNTER 2021-01-08 16:57 | Emergency (ER) | payer MEDICARE, MEDICAID, SELFPAY ==
[2021-01-08 16:58] VITALS: RESP 18; O2SAT 0; BMI 21.6
--- NOTE | 2021-01-08 17:02 | PC.NURSE ---
Pt is refusing to have VS taken. Pt states fuck you I'm not taking any blood pressures, I'm not taking any xrays . Asked pt if we could just assess her for any injuries. Pt began to shout profanities at staff again, telling staff to get out . Will notify ER MD. Contacted pts sister to see if possibly her being here would help to calm pt down. Pt sister states when pt gets like this, I'm the worst person to be around her . Sister states she is pts guardian and her nature photographer but states she is not able to help calm pt down.
--- NOTE | 2021-01-08 17:22 | PC.NURSE ---
SABAS GARCIA at
--- NOTE | 2021-01-08 17:27 | PC.NURSE ---
attempted to obtain VS again at this time, pt continues to refuse. Pt states stop F talking to me . notified ER
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
--- NOTE | 2021-01-08 17:56 | PC.NURSE ---
pt did allow me to obtain a SaO2 and heart rate on her at this time. VS reported to SABAS GARCIA.
[2021-01-08 17:57] VITALS: PULSE 82; RESP 16; O2SAT 99
--- NOTE | 2021-01-08 18:23 | PC.NURSE ---
report called to DIVYA Sadler at [facility] at this time
[2021-01-08 19:01] VITALS: BP 0/0; PULSE 82; RESP 16; TEMP -17.7; TEMP 0; O2SAT 99
== END 2021-01-08 19:06 | disposition home or self-care (01) ==
PROVIDERS: Emergency Provider Emergency Medicine; PCP Family Medicine
DX: G10 Huntington's disease (principal); W19.XXXA Unspecified fall, initial encounter; Y92.129 Unspecified place in nursing home as the place of occurrence of the external cause; E78.5 Hyperlipidemia, unspecified
CPT/HCPCS: 99281

== ENCOUNTER 2021-12-24 04:38 | Emergency (ER) | payer MEDICARE, MEDICAID, SELFPAY ==
[2021-12-24 04:30] VITALS: BP 117/68; PULSE 86; RESP 22; TEMP 36.6; O2SAT 100; BMI 26.9
--- NOTE | 2021-12-24 05:00 | CT_ITS ---
PROCEDURE INFORMATION: Exam: CT Maxillofacial Without Contrast Exam date and time: 12/24/2021 5:24 AM Age: 51 years old Clinical indication: Injury or trauma; Fall; Blunt trauma (contusions or hematomas); Orbit/periorbital; Injury details: Laceration to left orbit/eyebrow region TECHNIQUE: Imaging protocol: Computed tomography images of the face without contrast. Radiation optimization: All CT scans at this facility use at least one of these dose optimization techniques: automated exposure control; mA and/or kV adjustment per patient size (includes targeted exams where dose is matched to clinical indication); or iterative reconstruction. COMPARISON: No relevant prior studies available. FINDINGS: Orbital cavities: Unremarkable as visualized. Bones/joints: No acute fracture. Paranasal sinuses: Mild focal mucosal thickening of LEFT maxillary sinus. Minimal focal mucosal thickening of RIGHT maxillary sinus. No air-fluid levels. Soft tissues: Unremarkable. Dental: Few periapical lucencies/caries compatible with dental disease. IMPRESSION: No fracture.
--- NOTE | 2021-12-24 05:00 | CT_ITS ---
PROCEDURE INFORMATION: Exam: CT Head Without Contrast Exam date and time: 12/24/2021 5:20 AM Age: 51 years old Clinical indication: Injury or trauma; Fall; Blunt trauma (contusions or hematomas); Consciousness not specified; Injury details: Laceration to left eyebrow/orbit TECHNIQUE: Imaging protocol: Computed tomography of the head without contrast. Radiation optimization: All CT scans at this facility use at least one of these dose optimization techniques: automated exposure control; mA and/or kV adjustment per patient size (includes targeted exams where dose is matched to clinical indication); or iterative reconstruction. COMPARISON: CT HEAD/BRAIN WO CON 01/05/2021 8:35 PM FINDINGS: Brain: Moderate atrophy. No intracranial hemorrhage. No mass. Few scattered foci of decreased attenuation within periventricular/subcortical white matter. No edema. Cerebral ventricles: No hydrocephalus. Mastoid air cells: No significant effusion. Bones/joints: No calvarial fracture. Soft tissues: Mild scalp swelling. Probable sebaceous cysts within scalp. IMPRESSION: 1. No intracranial hemorrhage. 2. Probable chronic microvascular ischemic changes. 3. See facial bone CT report for additional details.
--- NOTE | 2021-12-24 05:04 | XR_ITS ---
PROCEDURE INFORMATION: Exam: XR Chest Exam date and time: 12/24/2021 5:40 AM Age: 51 years old Clinical indication: Injury or trauma; Fall; Blunt trauma (contusions or hematomas) TECHNIQUE: Imaging protocol: XR of the chest. Views: 1 view. COMPARISON: CR XR CHEST PORTABLE 01/05/2021 8:47 PM FINDINGS: Lungs: Hypoventilatory changes of the lungs, with perihilar vascular crowding and a diffuse increase in pulmonary parenchymal density. No consolidation. Pleural spaces: Unremarkable. No pleural effusion. No pneumothorax. Heart/Mediastinum: Unremarkable. No cardiomegaly. Bones/joints: Degenerative changes of the spine. Degenerative changes bilateral AC joints. IMPRESSION: No acute findings.
--- NOTE | 2021-12-24 05:04 | CT_ITS ---
PROCEDURE INFORMATION: Exam: CT Cervical Spine Without Contrast Exam date and time: 12/24/2021 5:20 AM Age: 51 years old Clinical indication: Injury or trauma; Fall; Blunt trauma TECHNIQUE: Imaging protocol: Computed tomography images of the cervical spine without contrast. Radiation optimization: All CT scans at this facility use at least one of these dose optimization techniques: automated exposure control; mA and/or kV adjustment per patient size (includes targeted exams where dose is matched to clinical indication); or iterative reconstruction. COMPARISON: CT CERVICAL SPINE WO CON 01/05/2021 8:38 PM FINDINGS: Vertebrae: No acute fracture. Normal alignment. Straightening of cervical spine. Anterior and posterior osteophytes within lower cervical spine. Mild facet osteoarthrosis within cervical spine. Discs/Spinal canal/Neural foramina: Mild to moderate degenerative disc disease within lower cervical spine. Moderate indentation thecal sac/cord lower cervical spine. Neuroforaminal narrowing within mid and lower cervical spine. Sinuses: Mild mucosal thickening of maxillary sinuses. Dental: Few periapical lucencies/caries compatible with dental disease. Thyroid: 1.7 x 1.4 x 1.0 cm nodule within LEFT lobe. Lungs: Unremarkable as visualized. Soft tissues: Unremarkable. IMPRESSION: 1. No fracture. 2. Thyroid nodule. Recommend ultrasound if not already performed. COMMENTS: Consistent with the [employer]'s Incidental Findings Committee white paper (J Am Jose Eduardo Radiol 2015): In patients aged 35 years and older with an incidental thyroid nodule equal to or greater than 1.[address], MRI or extrathyroidal US, further evaluation with dedicated thyroid US is recommended for patients with normal life expectancy and without comorbidities. For smaller nodules without suspicious features, no further evaluation or follow up is recommended.
--- NOTE | 2021-12-24 05:04 | XR_ITS ---
PROCEDURE INFORMATION: Exam: XR Left Tibia and Fibula Exam date and time: 12/24/2021 5:40 AM Age: 51 years old Clinical indication: Injury or trauma; Fall; Blunt trauma; Lower leg; Left TECHNIQUE: Imaging protocol: XR Left tibia and fibula. Views: 2 views. AP and lateral views Other technique: Diffuse soft tissue edema. COMPARISON: No relevant prior studies available. FINDINGS: Bones/joints: Distal fibula not well evaluated. This is discussed under separate ankle series. The visualized tibia and fibula appear intact, no malalignment. Tiny patellofemoral osteophytes. Soft tissues: Diffuse soft tissue edema. IMPRESSION: 1. No acute fracture evident. 2. Diffuse soft tissue edema.
--- NOTE | 2021-12-24 05:04 | CT_ITS ---
PROCEDURE INFORMATION: Exam: CT Thoracic Spine Without Contrast Exam date and time: 12/24/2021 5:27 AM Age: 51 years old Clinical indication: Injury or trauma; Fall; Blunt trauma (contusions or hematomas) TECHNIQUE: Imaging protocol: Computed tomography images of the thoracic spine without contrast. Radiation optimization: All CT scans at this facility use at least one of these dose optimization techniques: automated exposure control; mA and/or kV adjustment per patient size (includes targeted exams where dose is matched to clinical indication); or iterative reconstruction. COMPARISON: CT CERVICAL SPINE WO CON 12/24/2021 5:20 AM FINDINGS: Vertebrae: No fracture identified. Degenerative changes of the lower cervical spine are incompletely evaluated. Normal alignment. Bulky anterior osteophytes. Multilevel Schmorl's nodes. Discs/Spinal canal/Neural foramina: No significant spinal canal or foraminal narrowing. Soft tissues: Unremarkable. IMPRESSION: No acute fracture.
--- NOTE | 2021-12-24 05:04 | XR_ITS ---
PROCEDURE INFORMATION: Exam: XR Left Ankle Exam date and time: 12/24/2021 5:40 AM Age: 51 years old Clinical indication: Injury or trauma; Fall; Blunt trauma; Ankle; Left TECHNIQUE: Imaging protocol: XR Left ankle. Views: 3 or more views. AP, lateral and mortise views. COMPARISON: No relevant prior studies available. FINDINGS: Bones/joints: On the lateral view there is suggestion of nondisplaced oblique fracture through the distal fibula, on the AP and mortise views there does appear to be trabecular disruption distal fibula. Normal alignment at the ankle mortise. Soft tissues: Diffuse soft tissue edema. IMPRESSION: 1. Findings concerning for nondisplaced distal fibular fracture. 2. Diffuse circumferential soft tissue edema.
--- NOTE | 2021-12-24 05:04 | XR_ITS ---
PROCEDURE INFORMATION: Exam: XR Pelvis Exam date and time: 12/24/2021 5:40 AM Age: 51 years old Clinical indication: Injury or trauma; Fall; Blunt trauma (contusions or hematomas); Left; Pelvic region TECHNIQUE: Imaging protocol: XR pelvis. Views: 1 or 2 view. AP pelvis COMPARISON: CR XR PELVIS 1-2V 01/05/2021 8:47 PM FINDINGS: Bones/joints: Bone island again noted in the left proximal femoral shaft. No acute fracture or malalignment. Sacrum and SI joints appear unremarkable. Soft tissues: Unremarkable. Vasculature: Left pelvic phlebolith again noted. Other findings: Metallic density in region of umbilicus. IMPRESSION: No acute fracture.
--- NOTE | 2021-12-24 05:17 | PC.NURSE ---
PATIENT TAKEN TO XRAY
--- NOTE | 2021-12-24 05:52 | PC.NURSE ---
patient back from CT
--- NOTE | 2021-12-24 06:25 | [facility].EDWNDL ---
ED Disposition Clinical Impression: Grant disease Facial laceration Qualifiers: Encounter type: initial encounter Qualified Code(s): S01.81XA - Laceration without foreign body of other part of head, initial encounter Fall Qualifiers: Encounter type: initial encounter Qualified Code(s): W19.XXXA - Unspecified fall, initial encounter Fracture, fibula Qualifiers: Encounter type: initial encounter Fibula location: distal Fracture type: closed Fracture morphology: unspecified fracture morphology Laterality: left Qualified Code(s): S82.832A - Other fracture of upper and lower end of left fibula, initial encounter for closed fracture Contusion of head Qualifiers: Encounter type: initial encounter Contusion of head detail: scalp Qualified Code(s): S00.03XA - Contusion of scalp, initial encounter Disposition: Home, Self-Care Condition on Discharge: Good Instructions: DI for Laceration Repair, DI for Ankle Fracture Additional Instructions: suture out 8 days and need to see podiatry or ortho Referrals: Liam Garcia MD [Primary Care Provider] - - Critical Care Critical Care Time: No Attestation: On 12/24/21, the high probability of a clinically significant, sudden or life threatening deterioration of the following system(s) required my full and direct attention, intervention and personal management. The time I documented below is in addition to time spent performing reported procedures but includes the following listed in this critical care notation. Medical Decision Making - Medical Records Medical records reviewed: Yes: I reviewed the patient's medical records. - [place] Inquiry Pt receiving controlled substance: No Vital Signs: 12/24/21 04:30 Temperature 98 F Temperature Source Oral Pulse Rate [Left] 86 Respiratory Rate 22 Blood Pressure [Right Arm] 117/68 Blood Pressure Mean [Right Arm] 84 02 Sat by Pulse Oximetry 100 Oxygen Delivery Method Room Air - Lab Data Lab results reviewed: Yes: I reviewed the patient's lab results. Orders (Tests/Meds): ED MEDICATIONS Generic Name Dose Route Start Last Admin Trade Name Freq PRN Reason Stop Dose Admin Sodium Chloride 1,000 mls @ 999 mls/hr 12/24/21 05:00 12/24/21 05:07 Sod Chlor 0.9% 1000ml Bag IV 12/24/21 06:00 999 mls/hr .Q1H1M HEBERT Administration Discontinued Medications Generic Name Dose Route Start Last Admin Trade Name Freq PRN Reason Stop Dose Admin Ketorolac Tromethamine 30 mg 12/24/21 05:00 12/24/21 05:07 Ketorolac 30mg/Ml Vial IV 12/24/21 05:01 30 mg ONCE ONE Administration Ondansetron HCl 4 mg 12/24/21 05:00 12/24/21 05:07 Ondansetron 4mg/2ml Vial IV 12/24/21 05:01 4 mg ONCE ONE Administration - Radiology Data #1 Image(s): Chest, Pelvis, Tib/Fib, Ankle Image Reviewed: Yes I have reviewed radiologist's interpretation Preliminary Findings: Abnormal - CT Data CT Scan: Head, C-Spine, T-Spine, Other (facial) Time Received: 06:[address] Reviewed: Yes: I have viewed the radiologist's interpretation Preliminary Findings: No Fracture Seen Wound/Laceration HPI - General Chief Complaint: Wound/Laceration Stated Complaint: laceration Time Seen by Provider: 12/24/21 05:00 Mode of Arrival: EMS Source of Information: Patient, EMS, Medical Record Limitations: has huntingtons Description of Symptoms (Recalled from ER Triage Doc. by RN): laceration above the left eye controlled bleeding and swelling noted. pt states she has huntingtons and fell out of bed and hit her head on the leg of a bedside table - History of Present Illness HPI narrative: [facility] at [facility] with facial lac and lt lower ext injury Onset (ago): hour(s) Location: face Extremity Location: Left: lower leg, ankle Place: other ([facility]) Patient tetanus UTD: Yes (2019) Context: fall - Related Data Home Medications Medication Instructions Recorded Confirmed Deutetrabenazine [Austedo] 6 mg PO BID 06/20/1808/13
[2021-12-24 07:01] VITALS: BP 108/79; PULSE 95; RESP 14; TEMP 36.6; O2SAT 98
== END 2021-12-24 07:16 | disposition home or self-care (01) ==
PROVIDERS: Emergency Provider Emergency Medicine; PCP Family Medicine
DX: S01.81XA Laceration without foreign body of other part of head, initial encounter (principal); S82.832A Other fracture of upper and lower end of left fibula, initial encounter for closed fracture; S00.03XA Contusion of scalp, initial encounter; W06.XXXA Fall from bed, initial encounter; Y92.122 Bedroom in nursing home as the place of occurrence of the external cause; G10 Huntington's disease
CPT/HCPCS: 12011; 29515; 70450; 70486; 71045; 72125; 72128; 72170; 73590; 73610; 96365; 99284; J2405

== ENCOUNTER → 2021-12-30 13:08 | Outpatient (CLI) | payer MEDICARE, MEDICAID, SELFPAY ==
--- NOTE | 2021-12-30 13:19 | XR_ITS ---
FINAL REPORT CLINICAL HISTORY: ankle fracture COMPARISON: December 24, 2021 FINDINGS: LEFT ANKLE: Three views of the left ankle were obtained. An overlying cast obscures bony detail. There is no definite fracture seen. There is no dislocation. The joint spaces are preserved. IMPRESSION: Overlying cast obscures detail. No definite fracture. Reviewed, Interpreted and Dictated by Alex Velázquez III, MD Transcribed by Paddy Arana Authenticated by Alex Velázquez III, MD on 12/30/2021 03:16:48 PM [facility]
== END ==
PROVIDERS: PCP Family Medicine; Visit Provider Orthopaedic Surgery
DX: S82.402A Unspecified fracture of shaft of left fibula, initial encounter for closed fracture (principal)
CPT/HCPCS: 73610

== ENCOUNTER 2022-01-10 20:11 | Emergency (ER) | payer MEDICARE, MEDICAID, SELFPAY ==
[2022-01-10 20:03] VITALS: BP 99/73; PULSE 96; RESP 19; TEMP 36.9; O2SAT 100; BMI 26.9
--- NOTE | 2022-01-10 20:25 | XR_ITS ---
PROCEDURE INFORMATION: Exam: XR Chest Exam date and time: 01/10/2022 8:26 PM Age: 51 years old Clinical indication: Cough TECHNIQUE: Imaging protocol: XR of the chest. Views: 1 view. COMPARISON: CR XR CHEST AP 12/24/2021 5:40 AM FINDINGS: Lungs: Low lung volumes with associated vascular crowding and bibasilar atelectasis. Pleural spaces: Unremarkable. No pleural effusion. No pneumothorax. Heart/Mediastinum: Unremarkable. No cardiomegaly. Bones/joints: Unremarkable. IMPRESSION: No acute findings.
--- NOTE | 2022-01-10 20:28 | HMH.EDGENADL ---
ED Disposition Clinical Impression: Choking episode Disposition: Home, Self-Care Condition on Discharge: Good Additional Instructions: Contact Dr. Christian or return to ER if any difficulty breathing. Referrals: Liam Garcia MD [Primary Care Provider] - - Critical Care Critical Care Time: No Attestation: On 01/10/22, the high probability of a clinically significant, sudden or life threatening deterioration of the following system(s) required my full and direct attention, intervention and personal management. The time I documented below is in addition to time spent performing reported procedures but includes the following listed in this critical care notation. Medical Decision Making - [place] Inquiry Pt receiving controlled substance: No Vital Signs: 01/10/22 20:03 Temperature 98.4 F Temperature Source Oral Pulse Rate [Right] 96 H Respiratory Rate 19 Blood Pressure [Right Arm] 99/73 L Blood Pressure Mean [Right Arm] 81 Blood Pressure Source [Right Arm] Automatic Cuff 02 Sat by Pulse Oximetry 100 Oxygen Delivery Method Room Air Orders (Tests/Meds): ORDERS Category Date Time Status CXR --portable [XR chest portable] Stat Exams 01/10/22 20:25 Taken - Radiology Data #1 Image(s): Chest Image Reviewed: Yes I reviewed the patient's radiology image Preliminary Findings: Normal/NAD - Physician Consults Physician Consulted: Gino Time: 20:38 Reason -: Pt condition Comment/Response: Patient may be returned to long term. - Reevaluation(s) Time: 20:47 Reevaluation #1: Oxygen saturation remains 97% on room air. Medical Decision Narrative: Patient was taken off oxygen on arrival and has maintained pulse oximetry 100% on room air. Lungs are clear and chest x-ray also to my interpretation looks clear. General Adult HPI - General Chief complaint: Shortness of Breath/Dyspnea Stated complaint: SOA, low O2 Time Seen by Provider: 01/10/22 20:15 Mode of Arrival: EMS Limitations: Physical Limitations Description of Symptoms (Recalled from ER Triage Doc. by RN): Pt sent by long term for SOA and low o2 sats of 81%. Nurse Iyer states she placed pt on O2 @ 2.5LPM NC and o2 only increased to 87% which prompted her to call Dr. Christian (on-call Dr. Garcia). Per EMS, pt's room air sat is now 99% while in route. Pt states she was choking on apples earlier today and then soup at dinner time that caused her sat to drop and feel SOA. Pt denies any SOA at this time, room air sat 97-98% on arrival to ER. No audible wheezing noted as stated by long term nurse. - History of Present Illness HPI narrative: Brought in by ambulance from [facility]. Patient has [place]'s disease. She says that she choked on some food earlier today. residential reportedly checked her pulse ox and found it to be in the low 80s, put on oxygen and it only maria e to 87%. Therefore sent to the emergency room for evaluation. The patient denies chest pain, shortness of breath, cough, vomiting. - Related Data Home Medications Medication Instructions Recorded Confirmed Deutetrabenazine [Austedo] 6 mg PO BID 06/20/18 01/10/22 Sertraline HCl [Zoloft 100mg 100 mg PO BID 06/20/18 01/10/22 tablet] amantadine HCL [Symmetrel 100mg 100 mg PO BID 06/20/18 01/10/22 capsule] atorvastatin 20 mg tablet 20 mg PO DAILY tab 08/26/21 01/10/22 deutetrabenazine 12 mg tablet 24 mg PO BID tab 08/26/21 01/10/22 medroxyprogesterone 150 mg/mL 150 mg IM [id number] 08/26/21 01/10/22 intramuscular suspension multivitamin with folic acid 400 1 tab PO DAILY 08/26/21 01/10/22 mcg tablet quetiapine 150 mg tablet,extended 150 mg PO HS tab 08/26/21 01/10/22 release 24 hr quetiapine 50 mg tablet 100 mg PO DAILY PRN tab 08/26/21 01/10/22 tizanidine 2 mg tablet 2 mg PO HS tab 08/26/21 01/10/22 Potassium Chloride [Klor-con 20 20 meq PO DAILY 01/10/22 01/10/22 mEq tablet] clonazePAM [Klonopin 0.5mg tablet] 0
--- NOTE | 2022-01-10 20:47 | PC.NURSE ---
Report called to Shireen Jordan
[2022-01-10 20:54] VITALS: BP 98/71; PULSE 92; RESP 19; TEMP 36.9; O2SAT 100
== END 2022-01-10 21:10 | disposition home or self-care (01) ==
PROVIDERS: Emergency Provider Emergency Medicine; PCP Family Medicine
DX: T17.908A Unspecified foreign body in respiratory tract, part unspecified causing other injury, initial encounter (principal); R06.02 Shortness of breath; I10 Essential (primary) hypertension; E78.5 Hyperlipidemia, unspecified; G10 Huntington's disease; N32.81 Overactive bladder; F17.210 Nicotine dependence, cigarettes, uncomplicated; Z79.52 Long term (current) use of systemic steroids; Z79.899 Other long term (current) drug therapy; Z82.49 Family history of ischemic heart disease and other diseases of the circulatory system; Z83.3 Family history of diabetes mellitus
CPT/HCPCS: 71045; 99283

== ENCOUNTER → 2022-01-27 13:03 | Outpatient (CLI) | payer MEDICARE, MEDICAID, SELFPAY ==
--- NOTE | 2022-01-27 13:11 | XR_ITS ---
FINAL REPORT CLINICAL HISTORY: ankle fx COMPARISON: December 30, 2021 and December 24, 2021 FINDINGS: LEFT ANKLE: Three views of the left ankle were obtained. There is no definite acute fracture or dislocation. The joint spaces and mortise are intact. The lateral soft tissue swelling is improved from prior. IMPRESSION: No definite acute bony abnormality. Improved soft tissue swelling. Reviewed, Interpreted and Dictated by Alex Velázquez III, MD Transcribed by Fern Dhillon Authenticated by Alex Velázquez III, MD on 01/27/2022 03:19:35 PM [facility]
== END ==
PROVIDERS: PCP Family Medicine; Visit Provider Orthopaedic Surgery
DX: S82.892A Other fracture of left lower leg, initial encounter for closed fracture (principal)
CPT/HCPCS: 73610

== ENCOUNTER → 2022-02-03 11:22 | Outpatient (CLI) | payer MEDICARE, MEDICAID, SELFPAY ==
[2022-02-03 11:54] LABS: Microscopic, Urine URINE MICROSCOPIC (MICROSCOPIC)
[2022-02-03 12:10] LABS: Basophils # 0.1 K/mm3 (0-0.2); Basophils % 0.9 % (0.1-2.0); Eosinophils % 0.1 % (0.1-12.0); Hematocrit 43.4 % (37.0-47.0); Hemoglobin 14.8 g/dL (12.2-16.2); Lymphocytes % 14.8 % (10-50); Mean Corpuscular Hemoglobin 32.3 pg (27.0-31.2); Mean Corpuscular Volume 95.1 fl (81-99); Mean Platelet Volume 10.4 fl (7.4-10.4); Monocytes # 0.4 K/mm3 (0.1-1.0); Monocytes % 5.3 % (1.7-9.3); Neutrophils # 5.5 K/mm3 (1.8-7.8); Neutrophils % 78.8 % (37.0-80.0); Platelet Count 146 K/mm3 (142-424); Red Blood Count 4.56 M/mm3 (4.20-5.40); Red Cell Distribution Width 13.6 % (11.5-17.5)
[2022-02-03 12:51] LABS: Appearance,Urine CLEAR (Clear); Blood, Urine Negative (Negative); Color,Urine YELLOW (Yellow); Glucose,Urine (UA) Negative (Negative); Ketones,Urine 1+ (Negative); Leukocyte Esterase,Urine Negative (Negative); Nitrate,Urine Negative (Negative); PH,Urine 5.5 (5.0-8.5); Protein,Urine TRACE (Negative); Specific Gravity, Urine >= 1.030 (1.005-1.030); Urobilinogen,Urine 0.2 EU/dl (0.2)
[2022-02-03 13:00] LABS: Bilirubin,Urine 2+ (Negative)
[2022-02-03 13:04] LABS: Alanine Aminotransferase 20 U/L (12-78); Albumin Level 4.1 g/dl (3.5-5.0); Albumin/Globulin Ratio 1.4 (1.1-1.8); Alkaline Phosphatase 103 U/L (38-126); Anion Gap 15.7 mEq/L (5-15); Aspartate Amino Transferase 32 U/L (14-36); Bilirubin,Total 0.7 mg/dl (0.2-1.3); Blood Urea Nitrogen 17 mg/dl (7-17); Calcium 9.9 mg/dl (8.4-10.2); Carbon Dioxide 23 mmol/L (22.0-30.0); Chloride 108 mmol/L (98-107); Estimated Glomerular Filt Rate 89 ml/min (>60); GFR (African American) 108 ML/MIN (>60); Glucose 128 mg/dl (74-100); Potassium 3.7 mmoL/L (3.5-5.1); Sodium 143 mmol/L (136-145); Total Protein,Serum 7.1 g/dl (6.3-8.2)
[2022-02-03 13:11] LABS: Bacteria,Urine 1+ /lpf; Mucus,Urine Trace /lpf; RBC,Urine Occasional #/hpf (0-3); Squamous Epithelial Cell,Urine Occasional #/hpf (0-5); WBC,Urine Occasional #/hpf (0-3)
[2022-02-03 13:36] LABS: Thyroid Stimulating Hormone 2.78 uIU/mL (0.465-4.68)
== END ==
PROVIDERS: PCP Family Medicine; Visit Provider Family Medicine
DX: N39.0 Urinary tract infection, site not specified (principal); E78.5 Hyperlipidemia, unspecified
CPT/HCPCS: 80053; 81001; 84443; 85025